=== PATIENT | female | born 1985 | race Caucasian/White ===

== ENCOUNTER 2021-11-07 21:30 | Emergency (ER) | payer SELFPAY ==
[2021-11-07 22:18] LABS: BLOOD UREA NITROGEN,BUN 12 mg/dL (7.0-18.0); CARBON DIOXIDE,CO2 26.1 mmol/L (21.0-32.0); CHLORIDE,CL 104 mmol/L (98-107); GLUCOSE RANDOM 100 mg/dL (74-106); LIPASE 87 U/L (73-393); POTASSIUM,K 3.3 mmol/L (3.5-5.1); SODIUM,NA 139 mmol/L (136-145)
[2021-11-07 22:19] LABS: ESTIMATED GFR 75 mL/min (>60)
[2021-11-07] MEDS ORDERED: Iopamidol 755 Mg/ML 100 ML Bottle IVPUSH ONE (22:46)
== END 2021-11-08 00:12 | disposition home or self-care (01) ==
LOC: MW.ED 21:30
DX: F15.10 Other stimulant abuse, uncomplicated (principal); Z88.5 Allergy status to narcotic agent; Z88.2 Allergy status to sulfonamides; Y04.0XXA Assault by unarmed brawl or fight, initial encounter
CPT/HCPCS: 36415; 70450; 70496; 70498; 80053; 80305; 80307; 81001; 81025; 82550; 83690; 84703; 85025; 99284; Q9967; 99283